=== PATIENT | female | born 1980 | race African-American/Black ===

== ENCOUNTER 2022-09-22 14:39 | Emergency (ER) | payer MEDICAID ==
[~2022-09-22] VITALS: Ht 172.7 cm; Wt 76.0 kg
[2022-09-22 14:45] VITALS: O2SAT 100
[2022-09-22 14:49] VITALS: BP 138/85; PULSE 79; RESP 20; TEMP 98.6
[2022-09-22 15:20] LABS: BASOPHILS % 0.4 % (0.0-2.0); EOSINOPHILS % 0.8 % (0.0-5.0); HEMATOCRIT. 32.9 % (36.0-48.0); HEMOGLOBIN. 10.5 g/dL (12.0-16.0); LYMPHOCYTES % 30.1 % (20.0-50.0); MEAN CORPUSCULAR HEMOGLOBIN 24.8 pg (28.0-32.0); MEAN CORPUSCULAR VOLUME 77.6 fL (81.0-99.0); MEAN PLATELET VOLUME 7.4 fl (7.4-10.4); MONOCYTES % 7.4 % (2.0-8.0); NEUTROPHILS % 61.3 % (40.0-76.0); PLATELET 309 x1000/uL (130-400); RED BLOOD CELL COUNT 4.24 mill/uL (4.2-5.4); RED CELL DISTRIBUTION WIDTH 20.2 % (11.6-14.6)
[2022-09-22 15:27] LABS: CHLORIDE 109 mEq/L (98-107)
== END 2022-09-22 23:25 | disposition left against medical advice (07) ==
LOC: ER 15:37
DX: Z53.21 Procedure and treatment not carried out due to patient leaving prior to being seen by health care provider (principal)
CPT/HCPCS: 36415; 80053; 84484; 85025; 93005; 99281

== ENCOUNTER 2025-01-11 09:37 | Emergency (ER) | payer MEDICAID ==
[~2025-01-11] VITALS: Ht 172.7 cm; Wt 86.0 kg
[2025-01-11 09:39] VITALS: PULSE 100; RESP 18; O2SAT 99
[2025-01-11 09:43] VITALS: BP 154/94; TEMP 36.7; O2SAT 100
== END 2025-01-11 14:25 | disposition home or self-care (01) ==
LOC: ER 09:44
DX: R51.9 Headache, unspecified (principal); I10 Essential (primary) hypertension; Z91.040 Latex allergy status; Z88.5 Allergy status to narcotic agent
CPT/HCPCS: 73000; 81025; 99284